=== PATIENT | male | born 1985 | race Two or more races ===

== ENCOUNTER 2019-09-15 07:18 | Emergency (ER) | payer OTHER ==
[~2019-09-15] VITALS: Ht 180.3 cm; Wt 68.0 kg
[2019-09-15] MEDS ORDERED: KETO10TA2 PO (13:21)
== END 2019-09-15 13:36 | disposition home or self-care (01) ==
LOC: ER 07:18
DX: S90.02XA Contusion of left ankle, initial encounter (principal); W22.8XXA Striking against or struck by other objects, initial encounter; Y93.01 Activity, walking, marching and hiking; Y92.69 Other specified industrial and construction area as the place of occurrence of the external cause; Y99.8 Other external cause status